=== PATIENT | female | born 1970 | race Caucasian/White ===

== ENCOUNTER 2021-07-18 17:45 | Outpatient (CLI) | payer OTHER ==
--- NOTE | 2021-07-18 18:34 | Ultrasound Report ---
PROCEDURE: Duplex Ext Veins Right INDICATIONS: PAIN IN LOWER RIGHT LEG TECHNIQUE: Real-time imaging, as well as color and pulse Doppler interrogation, were performed of the lower extr emity deep veins from the inguinal ligament to the popliteal fossa. COMPARISON: None. FINDINGS: The deep veins are normally compressible, and free of intraluminal thrombus. Color and pu lse Doppler demonstrate normal phasic intraluminal flow. There is normal augmentation response to di stal compression maneuver. At patient's reported area of pain involving medial right calf region shows linear avascular hypoecho ic structure measures 3.6 x 0.2 x 0.9 cm in size. No internal vascularity is seen. IMPRESSION: 1. No evidence of DVT in visualized right lower extremity veins. 2. 3.6 x 0.2 x 0.9 cm cystic area involving medial right calf soft tissue which may represent a small hematoma. Reviewed by: Juan Medina MD on 07/18/2021 6:33 PM PST Approved by: Juan Medina MD on 07/18/2021 6:33 PM PST Station ID: [id number]
== END 2021-07-18 17:46 | disposition home or self-care (01) ==
LOC: DI 17:45
PROVIDERS: ATTEND Nurse Practitioner Family
DX: M79.661 Pain in right lower leg (principal); R60.0 Localized edema; R93.6 Abnormal findings on diagnostic imaging of limbs

== ENCOUNTER 2023-02-27 19:16 | Emergency (ER) | payer OTHER ==
--- NOTE | 2023-02-27 20:56 | ED Physician Documentation ---
History of Present Illness - Stated complaint Stated Complaint: ELECTROCUTED - Chief complaint Chief Complaint: General - History obtained from History obtained from: Patient - Additonal information Additional information: 52yF, previously healthy, presents to the ED with tingling in thumb and index finger, sore arm, and LLE tingling/numbness after experiencing voltage when plugging in a lamp. Patient states she heard the sound of a poof and then power to an adjacent plug system blew out. She denies cp, soa, dizziness, but does state she feels some mental slowness. denies specific neuro deficit. PD PAST MEDICAL HISTORY - Allergies Allergies/Adverse Reactions: Allergies Allergy/AdvReac Type Severity Reaction Status Date / Time No Known Drug Allergies Allergy Verified 02/27/23 19:29 PD ED PE NORMAL - Vitals Vital signs reviewed: Yes - General General: Alert and oriented X 3, No acute distress, Well developed/nourished - HEENT HEENT: Atraumatic, PERRL, EOMI, Moist mucous membranes, Pharynx benign - Neck Neck: Supple, no meningeal sign - Cardiac Cardiac: RRR - Respiratory Respiratory: No respiratory distress, Clear bilaterally - Derm Derm: Normal color, Warm and dry - Extremities Extremities: No deformity, Other (LUE 2+ radial pulse. normal sensation, cap refill, strength. 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 Relevant findings are: Rate: Rate (enter#) (75) Rhythm: NSR [place]: Normal Intervals: Normal AL QRS: Normal Ischemia: Normal ST segments PD Medical Decision Making - ED course ED course: 52yf presents for evaluation after electric shock sensation from a plug today. no objective deficits on neuro exam. benign appearance, normal vital signs with exception of some hypertension. advised patient to f/u with pcp for recheck. return precautions given. Departure - Departure Disposition: 01 Home, Self Care Clinical Impression: Tingling in extremities Condition: Stable Instructions: High Blood Pressure Comments: You were seen in the ED after experiencing voltage while plugging in a lamp. Your vital signs and exam were normal with the exception of some high blood pressure. You should follow up with a primary care provider regarding rechecking your blood pressure and for follow up after this ED visit. Return to the ED if you have new or worsening symptoms or other concerns. Forms: PCP List
[2023-02-27 21:19] VITALS: BP 158/96; O2SAT 99
== END 2023-02-27 21:18 | disposition home or self-care (01) ==
LOC: ED 19:16
DX: R20.2 Paresthesia of skin (principal); W86.0XXA Exposure to domestic wiring and appliances, initial encounter
CPT/HCPCS: 93005; 99283

== ENCOUNTER 2023-03-06 08:00 | Outpatient (CLI) | payer SELFPAY ==
[2023-03-06 18:09] LABS: BASOPHILS % (AUTO) 0.4 %; EOSINOPHILS # (AUTO) 0.1 10^3/uL (0.0-0.7); EOSINOPHILS % (AUTO) 0.6 %; HCT - HEMATOCRIT 41.7 % (37.0-47.0); LYMPHOCYTES # (AUTO) 2.3 10^3/uL (1.5-3.5); MEAN CORPUSCULAR HEMOGLOBIN 30.2 pg (27.0-31.0); MEAN CORPUSCULAR HGB CONC 33.6 g/dL (32.0-36.0); MEAN CORPUSCULAR VOLUME 89.9 fL (81.0-99.0); MEAN PLATELET VOLUME 10.8 fL (7.9-10.8); MONOCYTES # (AUTO) 0.6 10^3/uL (0.0-1.0); MONOCYTES % (AUTO) 6.3 %; NEUTROPHILS # (AUTO) 6.4 10^3/uL (1.5-6.6); NEUTROPHILS % (AUTO) 68.6 %; PLT - PLATELET COUNT 353 10^3/uL (130-450); RED BLOOD COUNT 4.64 10^6/uL (4.20-5.40); RED CELL DISTRIBUTION WIDTH 13.2 % (12.0-15.0); WHITE BLOOD COUNT 9.4 x10^3/uL (4.8-10.8)
== END 2023-03-06 23:59 | disposition home or self-care (01) ==
LOC: LAB.N 08:00
PROVIDERS: ATTEND Family Medicine
DX: T75.4XXD Electrocution, subsequent encounter (principal)
CPT/HCPCS: 36415; 80053; 82550; 85025